=== PATIENT | male | born 1965 | race Caucasian/White ===

== ENCOUNTER 2016-08-01 22:57 | Inpatient (IN) | payer OTHER ==
[~2016-08-01] VITALS: Ht 172.7 cm; Wt 79.1 kg
[2016-08-01 22:59] VITALS: BP 129/87; PULSE 94; RESP 16; TEMP 98.8; O2SAT 97
[2016-08-02] VITALS (8 sets, daily range): BP systolic 126–190; BP diastolic 77–102; PULSE 99–113; RESP 18–20; TEMP 98.3–98.4; O2SAT 97–99
[2016-08-02] MEDS ORDERED: CANA100T PO (03:09)
[2016-08-02] MEDS ORDERED: CYCL1TAB29 PO (03:09)
[2016-08-02] MEDS ORDERED: GLYB5TAB3 PO (03:09)
[2016-08-02] MEDS ORDERED: LISI-519 PO (03:09)
[2016-08-02] MEDS ORDERED: GABA300C5 PO (03:09)
--- NOTE | 2016-08-02 03:25 | PD ---
HPI Chief Complaint: GI Complaint Time Seen by Provider: 03:24 Travel History International Travel<30 days: No Contact w/Intl Traveler<30days: No Traveled to known affect area: No History of Present Illness HPI 50-year-old male is a chronic alcoholic and for past few days has been unable to keep anything down since he's vomiting. Patient is still intoxicated. His and his children are here were very concerned about his health. His said that he drinks a lot and has been drinking for a while. He was admitted for pancreatitis 6 months ago in [place]. Patient points to his entire abdomen when asked for the location of the pain. No history of blood in his vomitus. says that his urine is dark in color. His vital signs were relatively stable. [facility] Past Medical History Narrative Medical List of his past medical, surgical, social and family history is reviewed from the nursing note. Diabetes: Yes Patient Takes Glucophage: No Hypertension: Yes Medical other: Yes (moe rotator cuff problems) Past Surgical History Joint Replacement: Yes (right hip) Social History Alcohol Use: Yes (daily beer) Tobacco Use: No Substance Use: Yes (marijuana) Allergies-Medications (Allergen,Severity, Reaction): Coded Allergies: Demerol (Verified Allergy, Severe, Nausea/Vomiting, 08/02/16) Comments List of his allergies reviewed from the nursing note. Reported Meds & Prescriptions Reported Meds & Active Scripts Active Reported Lisinopril 5 Mg Tab 5 Mg PO DAILY Flexeril (Cyclobenzaprine HCl) 10 Mg Tab 10 Mg PO TID Glyburide 5 Mg Tab 5 Mg PO DAILY Take with meals at the same time each day Invokana (Canagliflozin) 100 Mg Tab 100 Mg PO DAILY Take before 1st meal of day. Gabapentin 300 Mg Cap 300 Mg PO QD Narrative Medication List of his home medications reviewed from the nursing note. Review of Systems Except as stated in HPI: all other systems reviewed are Neg Physical Exam Narrative GENERAL: Intoxicated, moderate distress SKIN: Focused skin assessment warm/dry. Flushed HEAD: Atraumatic. Normocephalic. EYES: Pupils equal and round. No scleral icterus. No injection or drainage. ENT: No nasal bleeding or discharge. Dry mucous membrane NECK: Trachea midline. No JVD. CARDIOVASCULAR: Regular rate and rhythm. No murmur appreciated. RESPIRATORY: No accessory muscle use. Clear to auscultation. Breath sounds equal bilaterally. GASTROINTESTINAL: Abdomen soft, non-tender, nondistended. Hepatic and splenic margins not palpable. MUSCULOSKELETAL: No obvious deformities. No clubbing. No cyanosis. No edema. NEUROLOGICAL: Awake and alert. No obvious cranial nerve deficits. Motor grossly within normal limits. Normal speech. PSYCHIATRIC: Appropriate mood and affect; insight and judgment normal. Data Data Last Documented VS Vital Signs Date Time Temp Pulse Resp B/P Pulse Ox O2 Delivery O2 Flow Rate FiO2 08/01/16 22:59 98.8 94 16 129/87 97 Room Air Orders Complete Blood Count With Diff (08/02/16 03:32) Comprehensive Metabolic Panel (08/02/16 03:32) Lipase (08/02/16 03:32) Prothrombin Time / Inr (Pt) (08/02/16 03:32) Urinalysis - C+S If Indicated (08/02/16 03:32) Ct Abd/Pel W/O Iv Contrast (08/02/16 03:32) Iv Access Insert/Monitor (08/02/16 03:32) Ecg Monitoring (08/02/16 03:32) Oximetry (08/02/16 03:32) Ondansetron Inj (Zofran Inj) (08/02/16 03:45) Pantoprazole Inj (Protonix Inj) (08/02/16 03:45) Sodium Chlor 0.9% 1000 Ml Inj (Ns 1000 M (08/02/16 03:32) Sodium Chloride 0.9% Flush (Ns Flush) (08/02/16 03:45) Magnesium (Mg) (08/02/16 05:04) Potassium Chlor 20 Meq Premix (Kcl 20 Me (08/02/16 05:15) Potassium Chloride (Kcl) (08/02/16 05:15) Admit Order (Ed Use Only) (08/02/16 05:14) Labs Laboratory Tests Test 08/02/16 03:45 White Blood Count 9.2 TH/MM3 Red Blood Count 4.09 MIL/MM3 Hemoglobin 13.8 GM/DL Hematocrit 38.8 % Mean Corpuscular Volume 94.8 FL Mean Corpuscular Hemoglobin 33.7 PG Mean Corpuscular Hemoglobin 35.5 % Concent Red Cell Distribution Width 12.9 % Platelet Count 190 TH/MM3 Mean Platelet Volume 8.2 FL Neutrophils (%) (Auto) 57.1 % Lymphocytes (%) (Auto) 31.1 % Monocytes (%) (Auto) 8.9 % Eosinophils (%) (Auto) 1.9 % Basophils (%) (Auto) 1.0 % Neutrophils # (Auto) 5.3 TH/MM3 Lymphocytes # (Auto) 2.9 TH/MM3 Monocytes # (Auto) 0.8 TH/MM3 Eosinophils # (Auto) 0.2 TH/MM3 Basophils # (Auto) 0.1 TH/MM3 CBC Comment DIFF FINAL Differential Comment Prothrombin Time 14.2 SEC Prothromb Time International 1.3 RATIO Ratio Sodium Level 124 MEQ/L Potassium Level 3.0 MEQ/L Chloride Level 88 MEQ/L Carbon Dioxide Level 22.5 MEQ/L Anion Gap 14 MEQ/L Blood Urea Nitrogen 7 MG/DL Creatinine 0.77 MG/DL Estimat Glomerular Filtration 106 ML/MIN Rate Random Glucose 129 MG/DL Calcium Level 8.6 MG/DL Magnesium Level 1.8 MG/DL Total Bilirubin 1.4 MG/DL Aspartate Amino Transf 88 U/L (AST/SGOT) Alanine Aminotransferase 69 U/L (ALT/SGPT) Alkaline Phosphatase 83 U/L Total Protein 7.8 GM/DL Albumin 3.8 GM/DL Lipase 695 U/L MDM Medical Decision Making Medical Screen Exam Complete: Yes Emergency Medical Condition: Yes Medical Record Reviewed: Yes Differential Diagnosis Acute pancreatitis, alcoholic cirrhosis, alcoholic hepatitis Narrative Course 5:02 AM patient's sodium level is significantly low. Potassium is low as well. I have given him a liter of IV fluid bolus and he is getting a second one. I will order for potassium replacement as well. He was also given IV Zofran and IV Protonix. Patient will need to be admitted for his hyponatremia. Awaiting for the hospitalist to call back. CT scan is down. Awaiting for the results. 5:[address] scan does not show any small bowel obstruction. There is hepatomegaly with fatty liver infiltration. Critical Care Narrative Aggregate critical care time was 30 minutes. Time to perform other separately billable procedures was not included in the critical care time. My time did not include minutes spent treating any other patients simultaneously or on activities that did not directly contribute to the patient's treatment. The services I provided to this patient were to treat and/or prevent clinically significant deterioration that could result in: Severe hyponatremia, hyperkalemia, replacement therapy I provided critical care services requiring my management, as noted below: Chart data review, documentation time, medication orders and management, vital sign assessments/reviewing monitor data, ordering and reviewing lab tests, ordering and interpreting/reviewing x-rays and diagnostic studies, care of the patient and discussion of the patient with the admitting physicians. Procedures EKG Prior to Arrival: No Diagnosis Primary Impression: Hyponatremia Additional Impressions: Alcoholic gastritis Qualified Code: K29.20 - Acute alcoholic gastritis without hemorrhage Hypokalemia Hepatomegaly Admitting Information Admitting Physician Requests: Aisha Rosen MD Aug 02, 2016 03:25
[2016-08-02] MEDS ORDERED: SODIUM CHLOR 0.9% 1000 ML INJ 1,000 ML IV SCH (03:32)
[2016-08-02] MEDS ORDERED: SODIUM CHLORIDE 0.9% FLUSH 10 ML FLUSH IV FLUSH PRN ×3 (03:45→11:45)
[2016-08-02] MEDS ORDERED: PANTOPRAZOLE SODIUM 40 MG VIAL IVP ONE (03:45)
[2016-08-02] MEDS ORDERED: ONDANSETRON HCL 4 MG/2 ML VIAL IVP ONE (03:45)
[2016-08-02 03:59] LABS: AUTOMATED NEUTROPHIL # 5.3 TH/MM3 (1.8-7.7); BASOPHIL # 0.1 TH/MM3 (0-0.2); EOSINOPHIL # 0.2 TH/MM3 (0-0.4); EOSINOPHIL % 1.9 % (0.0-4.0); HEMATOCRIT 38.8 % (39.0-51.0); HEMO FLAGS DIFF FINAL; LYMPH % 31.1 % (9.0-44.0); LYMPHOCYTE # 2.9 TH/MM3 (1.0-4.8); MEAN CELL VOLUME 94.8 FL (80.0-100.0); MEAN CORPUSCULAR HEMOGLOBIN 33.7 PG (27.0-34.0); MEAN CORPUSCULAR HGB CONC 35.5 % (32.0-36.0); MONO % 8.9 % (0.0-8.0); NEUT % 57.1 % (16.0-70.0); PLATELET COUNT 190 TH/MM3 (150-450); RED BLOOD COUNT 4.09 MIL/MM3 (4.50-5.90); RED CELL DISTRIBUTION WIDTH 12.9 % (11.6-17.2); WHITE BLOOD COUNT 9.2 TH/MM3 (4.0-11.0)
[2016-08-02 04:17] LABS: INTERNATIONAL NORMALIZED RATIO 1.3 RATIO; PROTHROMBIN TIME - PATIENT 14.2 SEC (9.8-11.6)
[2016-08-02 04:21] LABS: ALKALINE PHOSPHATASE 83 U/L (45-117); ALT (GPT) 69 U/L (12-78); ANION GAP 14 MEQ/L (5-15); AST (GOT) 88 U/L (15-37); BICARBONATE 22.5 MEQ/L (21.0-32.0); BLOOD UREA NITROGEN 7 MG/DL (7-18); CHLORIDE 88 MEQ/L (98-107); GLOMERULAR FILTRATION RATE 106 ML/MIN (>89); TOTAL BILIRUBIN ADULT 1.4 MG/DL (0.2-1.0)
[2016-08-02 04:30] LABS: SODIUM (NA) 124 MEQ/L (136-145)
--- NOTE | 2016-08-02 05:03 | RADRPT ---
EXAM DATE/TIME: 08/02/2016 04:34 [place] COMPARISON: No previous studies available for comparison. INDICATIONS : Abdomen pain with nausea and vomiting. ORAL CONTRAST: No oral contrast ingested. RADIATION DOSE: 9.96 CTDIvol (mGy) MEDICAL HISTORY : Hypertension. Diabetes mellitus type 2. SURGICAL HISTORY : Hip ORIF ENCOUNTER: Initial ACUITY: 1 day PAIN SCALE: 5/10 LOCATION: abdomen TECHNIQUE: Volumetric scanning of the abdomen and pelvis was performed. Using automated exposure control and ad justment of the mA and/or kV according to patient size, radiation dose was kept as low as reasonably achievable to obtain optimal diagnostic quality images. FINDINGS: LOWER LUNGS: The visualized lower lungs are clear. LIVER: Slightly fatty and mildly enlarged. The liver is approximately 21.[address] appearance of the gallbladder within normal limits. SPLEEN: Normal size without lesion. PANCREAS: Within normal limits. KIDNEYS: Normal in size and shape. There is no mass, stone, or hydronephrosis. ADRENAL GLANDS: Within normal limits. VASCULAR: There is aortoiliac atherosclerosis. No aneurysm. BOWEL/MESENTERY: The stomach, small bowel, and colon demonstrate no acute abnormality. There is no free intraperitone al air or fluid. Normal appendix. ABDOMINAL WALL: Within normal limits. RETROPERITONEUM: There is no lymphadenopathy. BLADDER: No wall thickening or mass. REPRODUCTIVE: Within normal limits. INGUINAL: Small fat containing inguinal hernia on the left. MUSCULOSKELETAL: No acute bony abnormality demonstrated. CONCLUSION: 1. Mildly enlarged and fatty infiltrated liver. 2. No obstruction or acute inflammatory changes. 3. Aortoiliac atherosclerosis. No aneurysm. 4. Small left inguinal hernia containing fat only. Dewayne Hoffman MD on August 02, 2016 at 4:59 Board Certified Radiologist. This report was verified electronically.
[2016-08-02] MEDS ORDERED: POTASSIUM CHLOR 20 MEQ PREMIX 100 ML IV ONE (05:15)
[2016-08-02] MEDS ORDERED: POTASSIUM CHLORIDE 20 MEQ CONTROLLED RELEASE TAB PO ONE (05:15)
[2016-08-02] MEDS ORDERED: ONDANSETRON HCL 4 MG/2 ML VIAL IVP PRN ×2 (05:30→11:45)
[2016-08-02] MEDS ORDERED: NALOXONE HCL 0.4 MG/ML AMP IV PRN ×2 (05:30→11:45)
[2016-08-02] MEDS: SODIUM CHLOR 0.9% 1000 ML INJ 1,000 ML IV SCH ×4 (06:01→23:26)
[2016-08-02 07:54] LABS: BLOOD, URINE MOD (NEG); COMMENT (UR) CULTURE INDICATED; CULTURE IF INDICATED CULTURE INDICATED; GLUCOSE,URINE NEG (NEG); GRANULAR CAST, URINE 3 /lpf; HYALINE CAST, URINE 29 /lpf (RARE); KETONE, URINE NEG (NEG); MUCUS URINE FEW /lpf (OCC); NITRITE,URINE NEG (NEG); PH, URINE 5.5 (5.0-8.5); SQUAMOUS EPITHELIAL CELL URINE 17 /hpf (0-5); URINE COLOR YELLOW (YELLW/STRAW)
[2016-08-02] MEDS: SODIUM CHLORIDE 0.9% FLUSH 10 ML FLUSH IV FLUSH SCH ×2 (07:59→21:00)
[2016-08-02 09:37] LABS: MAGNESIUM 1.8 MG/DL (1.5-2.5); POTASSIUM 3.8 MEQ/L (3.5-5.1)
[2016-08-02 11:27] LABS: BICARBONATE 21.5 MEQ/L (21.0-32.0); MAGNESIUM 1.7 MG/DL (1.5-2.5); POTASSIUM 3.8 MEQ/L (3.5-5.1)
--- NOTE | 2016-08-02 11:29 | HHI.HP ---
[facility]Staff Admission Diagnosis hyponatremia, hypokalemia, chronic alcoholism Diagnoses: Chief Complaint: Nausea vomiting diarrhea and weight loss Travel History International Travel<30 Days: No Contact w/Intl Traveler <30 Da: No Traveled to Known Affected Are: No History of Present Illness 51 years old male with history of heavy alcohol abuse 18 beer a day, who had episode of acute actinic keratitis about 6 month ago, presented to ED complaining of ongoing severe nausea and vomiting with any attempt to eat or drink, patient reported weight loss because of this, also patient reported diarrhea this time with a light stool color, his showed me some pictures of the stool. No fever or chills, patient denied significant abdominal pain or dysphagia. No chest pain, no dysuria urgency or frequency, patient expressed intention to stop drinking he want to try [facility] after discharge. Patient and his denied any blood in the vomit or the stool Review of Systems All 10 systems reviewed and was positive for what is mentioned in history of present illness otherwise negative Past Family Social History Past Medical History Alcoholism History of acute pancreatitis Hypertension Hyperlipidemia Diabetes mellitus Allergies: Coded Allergies: Demerol (Verified Allergy, Severe, Nausea/Vomiting, 08/02/16) Family History Review with the patient,not aware of significant medical history runs in his family Social History Patient drinks more than 18 beers a day daily, denied tobacco or illicit drug abuse Physical Exam Vital Signs Vital Signs Date Time Temp Pulse Resp B/P Pulse Ox O2 Delivery O2 Flow Rate FiO2 08/02/16 05:59 97 08/02/16 05:55 103 18 126/77 97 08/01/16 22:59 98.8 94 16 129/87 97 Room Air Physical Exam GENERAL: This is a well-nourished, well-developed patient, in no apparent distress. SKIN: No rashes, positive telangiectasis on the lower extremity and some on the face HEAD: Atraumatic. Normocephalic. EYES: Pupils equal round and reactive. Extraocular motions intact. Mild icteric sclera ENT: Nose without bleeding, or drainage, Airway patent. NECK: Trachea midline. Supple CARDIOVASCULAR: Regular rate and rhythm without murmurs, gallops, or rubs. RESPIRATORY: Fair air entry bilaterally. No wheezes, rales, or rhonchi. GASTROINTESTINAL: Abdomen soft, non-tender, nondistended. Positive bowel sounds , mild hepatomegaly appreciated under the costal margin MUSCULOSKELETAL: Extremities without clubbing, cyanosis, or edema. Pedal pulses appreciated NEUROLOGICAL: Awake and alert. Moves all extremity. Normal speech.no focal neurological deficit Laboratory Laboratory Tests Test 08/02/16 08/02/16 08/02/16 03:45 07:24 08:37 White Blood Count 9.2 Red Blood Count 4.09 Hemoglobin 13.8 Hematocrit 38.8 Mean Corpuscular Volume 94.8 Mean Corpuscular Hemoglobin 33.7 Mean Corpuscular Hemoglobin 35.5 Concent Red Cell Distribution Width 12.9 Platelet Count 190 Mean Platelet Volume 8.2 Neutrophils (%) (Auto) 57.1 Lymphocytes (%) (Auto) 31.1 Monocytes (%) (Auto) 8.9 Eosinophils (%) (Auto) 1.9 Basophils (%) (Auto) 1.0 Neutrophils # (Auto) 5.3 Lymphocytes # (Auto) 2.9 Monocytes # (Auto) 0.8 Eosinophils # (Auto) 0.2 Basophils # (Auto) 0.1 CBC Comment DIFF FINAL Differential Comment Prothrombin Time 14.2 Prothromb Time International 1.3 Ratio Sodium Level 124 132 Potassium Level 3.0 3.8 Chloride Level 88 97 Carbon Dioxide Level 22.5 23.0 Anion Gap 14 12 Blood Urea Nitrogen 7 5 Creatinine 0.77 0.68 Estimat Glomerular Filtration 106 122 Rate Random Glucose 129 162 Calcium Level 8.6 8.4 Magnesium Level 1.8 1.8 Total Bilirubin 1.4 Aspartate Amino Transf 88 (AST/SGOT) Alanine Aminotransferase 69 (ALT/SGPT) Alkaline Phosphatase 83 Total Protein 7.8 Albumin 3.8 Lipase 695 Urine Color YELLOW Urine Turbidity CLOUDY Urine pH 5.5 Urine Specific Davis 1.014 Urine Protein 100 Urine Glucose (UA) NEG Urine Ketones NEG Urine Occult Blood MOD Urine Nitrite NEG Urine Bilirubin NEG Urine Urobilinogen LESS THAN 2.0 Urine Leukocyte Esterase SMALL Urine RBC 56 Urine WBC 13 Urine Squamous Epithelial 17 Cells Urine Amorphous Sediment RARE Urine Hyaline Casts 29 Urine Granular Casts 3 Urine Mucus FEW Urine Yeast with Hyphae MOD Urine Yeast (Budding) MANY Microscopic Urinalysis Comment CULTURE INDICATED Date/Time Procedure Status Source Growth 08/02/16 07:24 Urine Culture Received Urine Clean Catch Pending Result Diagram: 08/02/16 0345 08/02/16 0837 Imaging Last Impressions Abdomen/Pelvis CT 08/02/16 0332 Signed Impressions: Service Date/Time: Tuesday, August 02, 2016 04:34 - CONCLUSION: 1. Mildly enlarged and fatty infiltrated liver. 2. No obstruction or acute inflammatory changes. 3. Aortoiliac atherosclerosis. No aneurysm. 4. Small left inguinal hernia containing fat only. Dewayne Hoffman MD Assessment and Plan Assessment and Plan 50 years old male with history of severe alcohol abuse came with complaint of losing weight due to constant nausea and vomiting with oral intake Persistent nausea and vomiting along with diarrhea with any oral intake need to rule out gastritis versus PUD History with chronic NSAID use 600 mg ibuprofen daily for arthritis which will increase his risk of PUD Acute on chronic pancreatitis with elevated lipase 695 Heavily alcohol abuse Hyponatremia mostly due to beer potomania Hypokalemia mostly due to diarrhea Fatty liver on CT abdomen Increased INR 1.3 due to mostly hepatic liver History of recent pancreatitis due to alcoholism 6 month ago Hypertension Diabetes mellitus DVT prophylaxis with SCD will hold on chemical due to increased INR due to hepatic liver Plan: Admit for observation Iv Protonix Generous iv fluid 200 cc normal saline Nothing by mouth Consult GI for upper scope Monitor BMP and electrolytes Hold oral hyperglycemic, Accu-Chek with insulin sliding scale Vasotec prn and resume lisinopril Areli Barrera MD Aug 02, 2016 11:29
[2016-08-02] MEDS ORDERED: GLUCAGON 1 MG/ML VIAL OTHER PRN (11:30)
[2016-08-02] MEDS ORDERED: LORazepam 2 MG/ML VIAL IV PUSH PRN ×4 (11:30)
[2016-08-02] MEDS ORDERED: FLUMAZENIL 0.5 MG/5 ML VIAL IV PUSH PRN (11:30)
[2016-08-02] MEDS ORDERED: DEXTROSE 50% IN WATER 50 ML VIAL(D50) IV PUSH PRN (11:30)
[2016-08-02] MEDS: GABAPENTIN 300 MG CAP PO SCH (14:03)
[2016-08-02] MEDS: PANTOPRAZOLE SODIUM 40 MG VIAL IV PUSH SCH (14:13)
[2016-08-02] MEDS: LORazepam 1 MG TAB PO PRN ×2 (14:14→21:05)
[2016-08-02 15:58] LABS: BICARBONATE 25.4 MEQ/L (21.0-32.0); MAGNESIUM 1.6 MG/DL (1.5-2.5); POTASSIUM 3.9 MEQ/L (3.5-5.1)
[2016-08-02] MEDS: INSULIN NovoLIN REGULAR SUPPLEMENTAL SCALE SQ SCH ×2 (16:00→21:00)
[2016-08-02] MEDS ORDERED: SODIUM CHLORIDE 0.9% FLUSH 10 ML FLUSH IV FLUSH SCH (21:00)
[2016-08-03] VITALS (18 sets, daily range): BP systolic 125–200; BP diastolic 71–117; PULSE 76–114; RESP 18–22; TEMP 97.8–98.9; O2SAT 95–99
[2016-08-03] MEDS: SODIUM CHLOR 0.9% 1000 ML INJ 1,000 ML IV SCH (03:30)
[2016-08-03] MEDS: LORazepam 1 MG TAB PO PRN ×4 (05:55→17:48)
[2016-08-03] MEDS: INSULIN NovoLIN REGULAR SUPPLEMENTAL SCALE SQ SCH ×4 (06:01→21:19)
[2016-08-03 06:57] LABS: AUTOMATED NEUTROPHIL # 2.9 TH/MM3 (1.8-7.7); BASOPHIL # 0.1 TH/MM3 (0-0.2); BASOPHIL % 1.3 % (0.0-2.0); EOSINOPHIL # 0.1 TH/MM3 (0-0.4); EOSINOPHIL % 1.4 % (0.0-4.0); HEMATOCRIT 38.3 % (39.0-51.0); HEMO FLAGS DIFF FINAL; LYMPH % 17.7 % (9.0-44.0); LYMPHOCYTE # 0.8 TH/MM3 (1.0-4.8); MEAN CELL VOLUME 96.8 FL (80.0-100.0); MEAN CORPUSCULAR HEMOGLOBIN 33.2 PG (27.0-34.0); MEAN CORPUSCULAR HGB CONC 34.3 % (32.0-36.0); MONO % 13.3 % (0.0-8.0); NEUT % 66.3 % (16.0-70.0); PLATELET COUNT 104 TH/MM3 (150-450); RED BLOOD COUNT 3.95 MIL/MM3 (4.50-5.90); WHITE BLOOD COUNT 4.4 TH/MM3 (4.0-11.0)
[2016-08-03 07:07] LABS: ALKALINE PHOSPHATASE 81 U/L (45-117); ALT (GPT) 57 U/L (12-78); ANION GAP 8 MEQ/L (5-15); AST (GOT) 64 U/L (15-37); BICARBONATE 27.2 MEQ/L (21.0-32.0); BLOOD UREA NITROGEN 7 MG/DL (7-18); CHLORIDE 106 MEQ/L (98-107); GLOMERULAR FILTRATION RATE 129 ML/MIN (>89); POTASSIUM 3.4 MEQ/L (3.5-5.1); SODIUM (NA) 141 MEQ/L (136-145); TOTAL BILIRUBIN ADULT 1.4 MG/DL (0.2-1.0)
[2016-08-03] MEDS: GABAPENTIN 300 MG CAP PO SCH (08:34)
[2016-08-03] MEDS: SODIUM CHLORIDE 0.9% FLUSH 10 ML FLUSH IV FLUSH SCH ×2 (08:34→21:15)
[2016-08-03] MEDS ORDERED: LISINOPRIL 5 MG TAB PO SCH (09:00)
[2016-08-03] MEDS ORDERED: ENALAPRILAT 1.25 MG/ML VIAL IV PUSH ONE (09:15)
--- NOTE | 2016-08-03 09:16 | PD.CONS ---
HPI History of Present Illness This is a 51 year old male who presented to the ED with c/o nausea and vomiting , decreased appetite, and weight loss. He reports that this has been going on for about 3 months. He is not sure how much weight he has actually lost. Denies abdominal pain. Reports he also has loose stool that is "pale" in color. He does use alcohol, reports about 18 beers per day. Reports he wants to stop drinking. Denies any fevers at home. Denies hematemesis or hematochezia. Has never had EGD or colonoscopy. Does report history of chronic NSAID use, takes Ibuprofen daily for pain in joints. (Za Pollard) PFSH Past Medical History -Alcoholism -Acute pancreatitis -Hypertension -Hyperlipidemia -Diabetes mellitus Past Surgical History -Never had EGD or Colonoscopy (Za Pollard) Coded Allergies: Demerol (Verified Allergy, Severe, Nausea/Vomiting, 08/02/16) Medications Current Medications Medications (Trade) Dose Ordered Sig/Rajan Route PRN Reason Start Time Stop Time Status Last Admin Dose Admin Sodium Chloride (NS 1000 ml Inj) 1,000 ml @ 100 mls/hr Q10H IV 08/02/16 05:17 08/03/16 03:30 Sodium Chloride (NS Flush) 2 ml UNSCH PRN IV FLUSH FLUSH AFTER USING IV ACCESS 08/02/16 05:30 Sodium Chloride (NS Flush) 2 ml BID IV FLUSH 08/02/16 09:00 Naloxone HCl (Narcan Inj) 0.4 mg UNSCH PRN IV SEE LABEL COMMENTS 08/02/16 05:30 Pantoprazole Sodium (Protonix Inj) 40 mg Q24H IV PUSH 08/02/16 13:00 08/02/16 14:13 Gabapentin (Neurontin) 300 mg DAILY PO 08/02/16 13:00 08/03/16 08:34 Lisinopril (Prinivil) 5 mg DAILY PO 08/03/16 09:00 08/03/16 08:34 Flumazenil (Romazicon Inj) 0.2 mg Q1M PRN IV PUSH SEE LABEL COMMENTS 08/02/16 11:30 Lorazepam (Ativan) 1 mg Q4H PRN PO CIWA 8 - 10 08/02/16 11:30 08/03/16 05:55 Lorazepam (Ativan Inj) 1 mg Q4H PRN IV PUSH CIWA 8 - 10 08/02/16 11:30 Lorazepam (Ativan) 2 mg Q2H PRN PO CIWA 11-14 08/02/16 11:30 Lorazepam (Ativan Inj) 2 mg Q2H PRN IV PUSH CIWA 11-14 08/02/16 11:30 Lorazepam (Ativan Inj) 2 mg Q1H PRN IV PUSH CIWA 15-20 08/02/16 11:30 Lorazepam (Ativan Inj) 2 mg Q15M PRN IV PUSH CIWA > 20 08/02/16 11:30 Dextrose (D50w (Vial) Inj) 25 ml UNSCH PRN IV PUSH HYPOGLYCEMIA-SEE COMMENTS 08/02/16 11:30 Glucagon (Glucagon Inj) 1 mg UNSCH PRN OTHER HYPOGLYCEMIA-SEE COMMENTS 08/02/16 11:30 Ondansetron HCl (Zofran Inj) 4 mg Q6H PRN IVP NAUSEA OR VOMITING 08/02/16 11:45 Pneumococcal Polyvalent Vaccine (Pneumovax-23 Inj) 25 mcg ONCE ONCE IM 08/03/16 10:00 08/03/16 10:01 Influenza Virus Vaccine (Flu (Quadrivalent) Vaccine Inj) 0.5 ml ONCE ONCE IM 08/03/16 10:00 08/03/16 10:01 Family History -Unsure of family medical history Social History -ETOH: Averages 18 beers per day -Tobacco: Denies -Illicit Drugs: Denies (Za Pollard) Review of Systems Constitutional: COMPLAINS OF: Weight loss Endocrine: DENIES: Polydipsia, Polyuria Eyes: DENIES: Blurred vision, Photosensitivity, Double Vision Ears, nose, mouth, throat: DENIES: Hearing loss, Vertigo, Oral lesions, Throat pain, Hoarseness Respiratory: DENIES: Cough, Wheezing, Hemoptysis, Sputum production, Shortness of breath Cardiovascular: DENIES: Chest pain, Palpitations, Syncope, Lower Extremity Edema, Orthopnea, Claudication Gastrointestinal: COMPLAINS OF: Diarrhea, Nausea, Vomiting, DENIES: Abdominal pain, Black stools, Bloody stools, Difficulty Swallowing, Swelling of Abdomen, Heartburn, Hematemesis Genitourinary: DENIES: Urinary frequency, Urinary incontinence, Urgency, Hematuria, Dysuria, Nocturia Musculoskeletal: DENIES: Joint pain, Muscle aches, Stiffness, Joint Swelling, Back pain, Neck pain Integumentary: DENIES: Abnormal pigmentation, Nail changes, Pruritus, Rash, Jaundice Hematologic/lymphatic: DENIES: Bruising, Lymphadenopathy Immunologic/allergic: DENIES: Eczema, Urticaria Neurologic: DENIES: Abnormal gait, Headache, Localized weakness, Paresthesias Psychiatric: DENIES: Anxiety, Confusion, Mood changes, Depression, Agitation, Suicidal Ideation (Za Pollard) GI Exam Vitals I&O Vital Signs Date Time Temp Pulse Resp B/P Pulse Ox O2 Delivery O2 Flow Rate FiO2 08/03/16 08:20 97.8 100 18 200/105 96 08/03/16 06:13 99 20 200/117 96 08/03/16 04:00 98.6 99 20 189/91 99 08/03/16 00:00 98.9 114 22 156/82 99 08/02/16 20:00 103 08/02/16 19:35 98.3 106 18 183/102 99 08/02/16 15:23 98.4 113 18 153/85 97 08/02/16 14:20 99 20 190/92 98 Room Air 08/02/16 12:00 98 21 08/02/16 11:30 104 20 154/82 99 Room Air I/O 08/02/16 08/02/16 08/02/16 08/03/16 08/03/16 08/03/16 07:00 15:00 23:00 07:00 15:00 23:00 Intake Total 240 ml 120 ml 1740 ml Output Total 300 ml 1252 ml Balance -60 ml 120 ml 488 ml Intake Oral 240 ml 120 ml IV Total 1740 ml Output Urine Total 300 ml 1250 ml Stool Total 2 ml # Voids 1 3 Imaging Last Impressions Abdomen/Pelvis CT 08/02/16 0332 Signed Impressions: Service Date/Time: Tuesday, August 02, 2016 04:34 - CONCLUSION: 1. Mildly enlarged and fatty infiltrated liver. 2. No obstruction or acute inflammatory changes. 3. Aortoiliac atherosclerosis. No aneurysm. 4. Small left inguinal hernia containing fat only. Dewayne Hoffman MD Laboratory Test 08/02/16 08/02/16 08/02/16 4/29/17 10:25 15:03 17:50 05:15 Sodium Level 135 MEQ/L 138 MEQ/L 141 MEQ/L Potassium Level 3.8 MEQ/L 3.9 MEQ/L 3.4 MEQ/L Chloride Level 99 MEQ/L 103 MEQ/L 106 MEQ/L Carbon Dioxide Level 21.5 MEQ/L 25.4 MEQ/L 27.2 MEQ/L Anion Gap 15 MEQ/L 10 MEQ/L 8 MEQ/L Blood Urea Nitrogen 5 MG/DL 4 MG/DL 7 MG/DL Creatinine 0.70 MG/DL 0.63 MG/DL 0.65 MG/DL Estimat Glomerular Filtration 118 ML/MIN 133 ML/MIN 129 ML/MIN Rate Random Glucose 150 MG/DL 135 MG/DL 143 MG/DL Calcium Level 8.5 MG/DL 8.7 MG/DL 8.1 MG/DL Magnesium Level 1.7 MG/DL 1.6 MG/DL 1.7 MG/DL White Blood Count 4.4 TH/MM3 Red Blood Count 3.95 MIL/MM3 Hemoglobin 13.1 GM/DL Hematocrit 38.3 % Mean Corpuscular Volume 96.8 FL Mean Corpuscular Hemoglobin 33.2 PG Mean Corpuscular Hemoglobin 34.3 % Concent Red Cell Distribution Width 13.0 % Platelet Count 104 TH/MM3 Mean Platelet Volume 8.8 FL Neutrophils (%) (Auto) 66.3 % Lymphocytes (%) (Auto) 17.7 % Monocytes (%) (Auto) 13.3 % Eosinophils (%) (Auto) 1.4 % Basophils (%) (Auto) 1.3 % Neutrophils # (Auto) 2.9 TH/MM3 Lymphocytes # (Auto) 0.8 TH/MM3 Monocytes # (Auto) 0.6 TH/MM3 Eosinophils # (Auto) 0.1 TH/MM3 Basophils # (Auto) 0.1 TH/MM3 CBC Comment DIFF FINAL Differential Comment Total Bilirubin 1.4 MG/DL Aspartate Amino Transf 64 U/L (AST/SGOT) Alanine Aminotransferase 57 U/L (ALT/SGPT) Alkaline Phosphatase 81 U/L Total Protein 7.0 GM/DL Albumin 3.1 GM/DL Date/Time Procedure Status Source Growth 08/02/16 07:24 Urine Culture Received Urine Clean Catch Pending Physical Examination HEENT: PERRLA, mild icteric sclera NECK: Neck is supple, no JVD, no lymphadenopathy. CHEST: CTA CARDIAC: RRR ABDOMEN: Obese. Soft, non tender. Bowels sounds x 4 quadrants EXTREMITIES: No clubbing, cyanosis, or edema. SKIN: Telangiectasis noted on bilateral lower extremities ASSISTANT PROJECT MANAGER: No focal deficits; A & O x 3 (Za Pollard) Assessment and Plan Plan ASSESSMENT: -N/V/D: Gastritis versus PUD? Patient with history of chronic NSAID use and heavy alcohol abuse. Denies abdominal pain. Abdomen/Pelvis CT-- 1. Mildly enlarged and fatty infiltrated liver. 2. No obstruction or acute inflammatory changes. 3. Aortoiliac atherosclerosis. No aneurysm. 4. Small left inguinal hernia containing fat only. Patient never has had EGD/colonoscopy. AST 64, ALT 57 -Chronic pancreatitis: Secondary to alcoholism. Lipase 08/02-695. Patient states he plans to quit drinking alcohol. PLAN: -Schedule EGD/Colonoscopy -Obtain consents -Continue IV PPI -IV fluids -NPO -Monitor labs -Alcohol cessation discussed with patient -Further recommendations to follow based on results of above Patient seen and examined by Dr. Gerber and myself and this note is written on his behalf. (Za Pollard) Physician Comments Patient seen and examined Agree with above Continue with current supportive care Monitor labs Plan for an EGD and a colonoscopy on Friday (Hayes Gerber MD) Za Pollard Aug 03, 2016 09:16 Hayes Gerber MD Aug 03, 2016 12:42
[2016-08-03] MEDS ORDERED: LABETALOL HCL 100 MG/20 ML VIAL IV PUSH STA (09:19)
[2016-08-03] MEDS ORDERED: INFLUENZA VIRUS VACCINE (QUADRIVALENT) 0.5 ML SYR IM ONE (10:00)
[2016-08-03] MEDS ORDERED: PNEUMOCOCCAL POLYVALENT INJ 25 MCG/0.5 ML SYR IM ONE (10:00)
--- NOTE | 2016-08-03 11:18 | HHI.PR ---
Subjective Remarks I was called to see the patient having severe hypertension 200/117 Patient complain of some headache otherwise no chest anal dizziness fever or chills He was ordered 1 dose of labetalol, and added Vasotec as needed blood pressure drop nicely to 140/85, I increased his daily lisinopril and added Lopressor for his tachycardia. Patient told me he used to be on Lopressor statin and lisinopril however he stopped it on his own all of sudden Objective Vitals Vital Signs Date Time Temp Pulse Resp B/P Pulse Ox O2 Delivery O2 Flow Rate FiO2 08/03/16 10:40 86 176/93 08/03/16 10:09 85 176/97 08/03/16 09:55 99 176/104 08/03/16 08:20 97.8 100 18 200/105 96 08/03/16 06:13 99 20 200/117 96 08/03/16 04:00 98.6 99 20 189/91 99 08/03/16 00:00 98.9 114 22 156/82 99 08/02/16 20:00 103 08/02/16 19:35 98.3 106 18 183/102 99 08/02/16 15:23 98.4 113 18 153/85 97 08/02/16 14:20 99 20 190/92 98 Room Air 08/02/16 12:00 98 21 08/02/16 11:30 104 20 154/82 99 Room Air I/O 08/02/16 08/02/16 08/02/16 08/03/16 08/03/16 08/03/16 07:00 15:00 23:00 07:00 15:00 23:00 Intake Total 240 ml 120 ml 1740 ml Output Total 300 ml 1252 ml Balance -60 ml 120 ml 488 ml Intake Oral 240 ml 120 ml IV Total 1740 ml Output Urine Total 300 ml 1250 ml Stool Total 2 ml # Voids 1 3 Result Diagram: 08/03/16 0515 08/03/16 0515 Objective Remarks GENERAL: This is a well-nourished, well-developed patient, in no apparent distress. CARDIOVASCULAR: Regular rate and rhythm without murmurs, gallops, or rubs. RESPIRATORY: Clear to auscultation. Breath sounds equal bilaterally. No wheezes , rales, or rhonchi. GASTROINTESTINAL: Abdomen soft, non-tender, nondistended. Normal active bowel sounds MUSCULOSKELETAL: Extremities without clubbing, cyanosis, or edema. NEURO: Alert & Oriented x4 to person, place, time, situation. Moves all ext x4 A/P Assessment and Plan 50 years old male with history of severe alcohol abuse came with complaint of losing weight due to constant nausea and vomiting with oral intake Hypertensive urgency with blood pressure 200/117 on 08/03 with tachycardia>> improved Persistent nausea and vomiting along with diarrhea with any oral intake need to rule out gastritis versus PUD History with chronic NSAID use 600 mg ibuprofen daily for arthritis which will increase his risk of PUD Acute on chronic pancreatitis with elevated lipase 695 Heavily alcohol abuse Hyponatremia mostly due to beer potomania Hypokalemia mostly due to diarrhea Fatty liver on CT abdomen Increased INR 1.3 due to mostly hepatic liver History of recent pancreatitis due to alcoholism 6 month ago Hypertension Diabetes mellitus DVT prophylaxis with SCD will hold on chemical due to increased INR due to hepatic liver Plan: Change to inpatient admission Labetalol iv, Vasotec iv, increase lisinopril, check A1c , and FLP>> LDL 130, HDL 70, total cholesterol 2:15>> considering his fatty liver and out weight risk and benefit of statin holding on initiating statin is mostly favorable Appreciated GI consultation plan for EGD colonoscopy on Friday Advancing diet to clear liquids per GI Repeat lipase in a.m. Monitor BMP and electrolytes Iv Protonix Generous iv fluid 200 cc normal saline Hold oral hyperglycemic, Accu-Chek with insulin sliding scale Vasotec prn and resume lisinopril Areli Barrera MD Aug 03, 2016 11:18
[2016-08-03] MEDS: PANTOPRAZOLE SODIUM 40 MG VIAL IV PUSH SCH (12:16)
[2016-08-03] MEDS: LABETALOL HCL 100 MG/20 ML VIAL IV PRN ×2 (14:11→17:46)
[2016-08-03 14:29] LABS: LDL CHOLESTEROL 130 MG/DL (0-99)
[2016-08-03] MEDS ORDERED: PEG (High)/E-LYTE SOLN 4000 ML BTL PO ONE (16:00)
[2016-08-03] MEDS: METOPROLOL TARTRATE 25 MG TAB PO SCH (21:13)
[2016-08-03] MEDS: LISINOPRIL 10 MG TAB PO SCH (21:14)
[2016-08-03] MEDS: LORazepam 2 MG TAB PO PRN (21:29)
[2016-08-04] VITALS (26 sets, daily range): BP systolic 114–166; BP diastolic 71–96; PULSE 67–102; RESP 16–20; TEMP 97.6–98.7; O2SAT 96–99
[2016-08-04] MEDS: LORazepam 2 MG TAB PO PRN (03:17)
[2016-08-04] MEDS: INSULIN NovoLIN REGULAR SUPPLEMENTAL SCALE SQ SCH ×4 (06:34→20:24)
[2016-08-04 07:30] LABS: ALT (GPT) 52 U/L (12-78); ANION GAP 9 MEQ/L (5-15); AST (GOT) 55 U/L (15-37); BICARBONATE 27.1 MEQ/L (21.0-32.0); BLOOD UREA NITROGEN 4 MG/DL (7-18); CHLORIDE 102 MEQ/L (98-107); GLOMERULAR FILTRATION RATE 156 ML/MIN (>89); HEMATOCRIT 37.6 % (39.0-51.0); MEAN CELL VOLUME 96.3 FL (80.0-100.0); MEAN CORPUSCULAR HEMOGLOBIN 32.7 PG (27.0-34.0); PLATELET COUNT 111 TH/MM3 (150-450); POTASSIUM 3.1 MEQ/L (3.5-5.1); RED CELL DISTRIBUTION WIDTH 12.7 % (11.6-17.2); REVIEW FLAG FINAL; SODIUM (NA) 138 MEQ/L (136-145); WHITE BLOOD COUNT 4.7 TH/MM3 (4.0-11.0)
[2016-08-04 07:32] LABS: ALKALINE PHOSPHATASE 71 U/L (45-117); TOTAL BILIRUBIN ADULT 1.5 MG/DL (0.2-1.0)
[2016-08-04] MEDS: LORazepam 1 MG TAB PO PRN ×2 (08:38→12:48)
[2016-08-04] MEDS: GABAPENTIN 300 MG CAP PO SCH (08:38)
[2016-08-04] MEDS: SODIUM CHLORIDE 0.9% FLUSH 10 ML FLUSH IV FLUSH SCH ×2 (08:38→20:19)
[2016-08-04] MEDS: METOPROLOL TARTRATE 25 MG TAB PO SCH ×2 (08:39→20:18)
[2016-08-04] MEDS: LISINOPRIL 10 MG TAB PO SCH (08:39)
[2016-08-04] MEDS ORDERED: ENALAPRILAT 1.25 MG/ML VIAL IV PUSH PRN (09:45)
[2016-08-04] MEDS: POTASSIUM CHLORIDE 10 MEQ CONTROLLED RELEASE TAB PO SCH ×2 (09:58→12:48)
[2016-08-04] MEDS ORDERED: LISINOPRIL 10 MG TAB PO ONE (10:00)
[2016-08-04 11:13] LABS: HEMOGLOBIN A1b 1.6 %; HEMOGLOBIN LA1C 2.1 %; HEMOGLOBIN P3 3.6 %
--- NOTE | 2016-08-04 11:27 | HHI.GIFU ---
Subjective Remarks 51 yo male walking around his room in no apparent distress. Reports that he had an episode of emesis this morning, but denies nausea. States he had diarrhea yesterday. (Za Pollard) Objective Vitals I&O Vital Signs Date Time Temp Pulse Resp B/P Pulse Ox O2 Delivery O2 Flow Rate FiO2 08/04/16 11:00 97.6 80 17 146/91 98 08/04/16 08:57 98 21 08/04/16 08:00 99 Room Air 08/04/16 07:45 98.7 86 17 166/96 99 08/04/16 06:00 81 08/04/16 05:00 79 08/04/16 04:00 98.0 86 18 159/92 96 08/04/16 04:00 86 08/04/16 04:00 Room Air 08/04/16 03:46 96 21 08/04/16 03:00 84 08/04/16 02:00 81 08/04/16 01:00 79 08/04/16 00:00 98.5 81 18 149/86 96 08/04/16 00:00 81 08/04/16 00:00 Room Air 08/03/16 23:00 84 08/03/16 22:00 88 08/03/16 21:00 82 08/03/16 20:00 76 08/03/16 20:00 98.2 76 22 161/87 97 08/03/16 16:02 98.7 85 18 125/71 96 08/03/16 15:00 81 08/03/16 13:55 80 08/03/16 12:46 90 18 145/80 95 08/03/16 12:14 80 134/78 08/03/16 11:26 89 160/87 I/O 08/03/16 08/03/16 08/03/16 08/04/16 08/04/16 08/04/16 07:00 15:00 23:00 07:00 15:00 23:00 Intake Total 1740 ml 1250 ml 490 ml Output Total 1252 ml 350 ml 600 ml Balance 488 ml 900 ml -110 ml Intake Oral 650 ml 480 ml IV Total 1740 ml 600 ml 10 ml Output Urine Total 1250 ml 350 ml 600 ml Stool Total 2 ml 0 ml # Voids 3 # Bowel Movements 0 Laboratory Laboratory Tests Test 4/29/17 4/30/17 13:20 06:00 Triglycerides Level 77 Cholesterol Level 215 LDL Cholesterol 130 HDL Cholesterol 70.0 Cholesterol/HDL Ratio 3.07 White Blood Count 4.7 Red Blood Count 3.90 Hemoglobin 12.8 Hematocrit 37.6 Mean Corpuscular Volume 96.3 Mean Corpuscular Hemoglobin 32.7 Mean Corpuscular Hemoglobin 34.0 Concent Red Cell Distribution Width 12.7 Platelet Count 111 Mean Platelet Volume 8.9 Sodium Level 138 Potassium Level 3.1 Chloride Level 102 Carbon Dioxide Level 27.1 Anion Gap 9 Blood Urea Nitrogen 4 Creatinine 0.55 Estimat Glomerular Filtration 156 Rate Random Glucose 133 Calcium Level 8.1 Total Bilirubin 1.5 Aspartate Amino Transf 55 (AST/SGOT) Alanine Aminotransferase 52 (ALT/SGPT) Alkaline Phosphatase 71 Total Protein 7.0 Albumin 3.1 Lipase 270 Date/Time Procedure Status Source Growth 08/02/16 07:24 Urine Culture - Final Complete Urine Clean Catch NO GROWTH IN 48 HOURS. Imaging Last Impressions Abdomen/Pelvis CT 08/02/16 0332 Signed Impressions: Service Date/Time: Tuesday, August 02, 2016 04:34 - CONCLUSION: 1. Mildly enlarged and fatty infiltrated liver. 2. No obstruction or acute inflammatory changes. 3. Aortoiliac atherosclerosis. No aneurysm. 4. Small left inguinal hernia containing fat only. Dewayne Hoffman MD Physical Exam HEENT: PERRLA; normocephalic; atraumatic; no jaundice. Throat is clear. NECK: Neck is supple, no JVD, no lymphadenopathy. CHEST: CTA CARDIAC: RRR ABDOMEN: Obese, nontender; no hepatosplenomegaly; bowel sounds x 4 quadrants EXTREMITIES: No clubbing, cyanosis, or edema. SKIN: Normal; no rash; no jaundice. PIERCING ARTIST: No focal deficits; A & O x3 (Za Pollard) Assessment and Plan Plan ASSESSMENT: -N/V/D: Gastritis versus PUD? Patient with history of chronic NSAID use and heavy alcohol abuse. Denies abdominal pain. Abdomen/Pelvis CT-- 1. Mildly enlarged and fatty infiltrated liver. 2. No obstruction or acute inflammatory changes. 3. Aortoiliac atherosclerosis. No aneurysm. 4. Small left inguinal hernia containing fat only. Patient never has had EGD/colonoscopy. AST 55, ALT 52 -Chronic pancreatitis: Secondary to alcoholism. Lipase 08/02-695, 08/04-270. Patient states he plans to quit drinking alcohol. PLAN: -EGD/Colonoscopy Friday -Bowel prep today -Continue PPI -IV fluids -Monitor labs -Alcohol cessation discussed with patient -Further recommendations to follow based on results of above Patient seen and examined by Dr. Gerber and myself and this note is written on his behalf. (Za Pollard) Physician Comments Patient seen and examined Agree with above Continue with current supportive care Monitor labs EGD colonoscopy tomorrow (Hayes Gerber MD) Za Polalrd Aug 04, 2016 11:27 Hayes Gerber MD Aug 04, 2016 23:18
[2016-08-04] MEDS ORDERED: PEG (High)/E-LYTE SOLN 4000 ML BTL PO ONE (12:00)
[2016-08-04] MEDS: PANTOPRAZOLE SODIUM 40 MG VIAL IV PUSH SCH (12:04)
--- NOTE | 2016-08-04 14:18 | HHI.PR ---
Subjective Remarks Patient stated he did vomit this morning when he was trying to drink the prep for the colonoscopy he denied blood in the vomit Currently no chest and/or abdominal pain, he is going for EGD colonoscopy tomorrow Patient requested to try to wean himself off the alcohol/beer and if he fails he will follow with Reji Buchanan Objective Vitals Vital Signs Date Time Temp Pulse Resp B/P Pulse Ox O2 Delivery O2 Flow Rate FiO2 08/04/16 11:00 79 08/04/16 11:00 97.6 80 17 146/91 98 08/04/16 10:00 86 08/04/16 09:00 92 08/04/16 08:57 98 21 08/04/16 08:00 88 08/04/16 08:00 99 Room Air 08/04/16 07:45 98.7 86 17 166/96 99 08/04/16 07:00 75 08/04/16 06:00 81 08/04/16 05:00 79 08/04/16 04:00 98.0 86 18 159/92 96 08/04/16 04:00 86 08/04/16 04:00 Room Air 08/04/16 03:46 96 21 08/04/16 03:00 84 08/04/16 02:00 81 08/04/16 01:00 79 08/04/16 00:00 98.5 81 18 149/86 96 08/04/16 00:00 81 08/04/16 00:00 Room Air 08/03/16 23:00 84 08/03/16 22:00 88 08/03/16 21:00 82 08/03/16 20:00 76 08/03/16 20:00 98.2 76 22 161/87 97 08/03/16 16:02 98.7 85 18 125/71 96 08/03/16 15:00 81 I/O 08/03/16 08/03/16 08/03/16 08/04/16 08/04/16 08/04/16 07:00 15:00 23:00 07:00 15:00 23:00 Intake Total 1740 ml 1250 ml 490 ml Output Total 1252 ml 350 ml 600 ml Balance 488 ml 900 ml -110 ml Intake Oral 650 ml 480 ml IV Total 1740 ml 600 ml 10 ml Output Urine Total 1250 ml 350 ml 600 ml Stool Total 2 ml 0 ml # Voids 3 # Bowel Movements 0 Result Diagram: 08/04/1659908/04/16599 Objective Remarks GENERAL: This is a well-nourished, well-developed patient, in no apparent distress. CARDIOVASCULAR: Regular rate and rhythm without murmurs, gallops, or rubs. RESPIRATORY: Clear to auscultation. Breath sounds equal bilaterally. No wheezes , rales, or rhonchi. GASTROINTESTINAL: Abdomen soft, non-tender, nondistended. Normal active bowel sounds MUSCULOSKELETAL: Extremities without clubbing, cyanosis, or edema. NEURO: Alert & Oriented x4 to person, place, time, situation. Moves all ext x4 A/P Assessment and Plan 50 years old male with history of severe alcohol abuse came with complaint of losing weight due to constant nausea and vomiting with oral intake Hypertensive urgency with blood pressure 200/117 on 08/03 with tachycardia>> improved Persistent nausea and vomiting along with diarrhea with any oral intake need to rule out gastritis versus PUD History with chronic NSAID use 600 mg ibuprofen daily for arthritis which will increase his risk of PUD Acute on chronic pancreatitis with elevated lipase 695 Heavily alcohol abuse Hyponatremia mostly due to beer potomania Hypokalemia mostly due to diarrhea Fatty liver on CT abdomen Increased INR 1.3 due to mostly hepatic liver History of recent pancreatitis due to alcoholism 6 month ago Hypertension Diabetes mellitus uncontrolled with A1c 7.3 DVT prophylaxis with SCD will hold on chemical due to increased INR due to hepatic liver Plan: Labetalol iv, Vasotec iv, again increase lisinopril to maximum 40 mg daily, and FLP>> LDL 130, HDL 70, total cholesterol 2:15>> considering his fatty liver and out weight risk and benefit of statin holding on initiating statin is mostly favorable A1c 7.3, obviously patient has uncontrolled diabetes CBC BMP in a.m. Appreciated GI consultation plan for EGD colonoscopy on Friday Advancing diet to clear liquids per GI Repeat lipase in a.m. Monitor BMP and electrolytes Iv Protonix Generous iv fluid 200 cc normal saline Hold oral hyperglycemic, Accu-Chek with insulin sliding scale Vasotec prn and resume lisinopril Areli Barrera MD Aug 04, 2016 14:18
[2016-08-04] MEDS: LISINOPRIL 20 MG TAB PO SCH (20:19)
[2016-08-05] VITALS (13 sets, daily range): BP systolic 159–175; BP diastolic 93–104; PULSE 69–87; RESP 18; TEMP 98.1–98.4; O2SAT 96–99
[2016-08-05] MEDS: INSULIN NovoLIN REGULAR SUPPLEMENTAL SCALE SQ SCH ×2 (06:25→11:00)
[2016-08-05 06:55] LABS: AUTOMATED NEUTROPHIL # 3.2 TH/MM3 (1.8-7.7); BASOPHIL % 0.9 % (0.0-2.0); EOSINOPHIL # 0.2 TH/MM3 (0-0.4); EOSINOPHIL % 3.5 % (0.0-4.0); HEMATOCRIT 40.4 % (39.0-51.0); HEMO FLAGS DIFF FINAL; LYMPHOCYTE # 1.5 TH/MM3 (1.0-4.8); MEAN CELL VOLUME 97.3 FL (80.0-100.0); MEAN CORPUSCULAR HEMOGLOBIN 34.2 PG (27.0-34.0); MEAN CORPUSCULAR HGB CONC 35.1 % (32.0-36.0); MONO % 11.2 % (0.0-8.0); NEUT % 57.4 % (16.0-70.0); PLATELET COUNT 131 TH/MM3 (150-450); RED BLOOD COUNT 4.16 MIL/MM3 (4.50-5.90); RED CELL DISTRIBUTION WIDTH 12.6 % (11.6-17.2); WHITE BLOOD COUNT 5.5 TH/MM3 (4.0-11.0)
[2016-08-05 07:04] LABS: BICARBONATE 29.8 MEQ/L (21.0-32.0)
[2016-08-05] MEDS: LISINOPRIL 20 MG TAB PO SCH (08:18)
[2016-08-05] MEDS: SODIUM CHLORIDE 0.9% FLUSH 10 ML FLUSH IV FLUSH SCH (08:19)
[2016-08-05] MEDS: GABAPENTIN 300 MG CAP PO SCH (08:19)
[2016-08-05] MEDS: METOPROLOL TARTRATE 25 MG TAB PO SCH (08:19)
[2016-08-05] MEDS ORDERED: PROPOFOL 200 MG/20 ML AMP IV ONE (10:39)
--- NOTE | 2016-08-05 11:00 | GIPROC ---
[facility] [address] [facility]. [facility], [address] EGD PROCEDURE REPORT EXAM DATE: 08/05/2016 PATIENT NAME: Kaushik Penny MR #: [id number] BIRTHDATE: 1965 ATTENDING: Magan Mojica MD ORDER #: [id number] FOOT AND ANKLE SURGEON: Ambar Olivas and Vel Louise STATUS: inpatient INDICATIONS: The patient is a 51 yr old male here for an EGD due to epigastric abdominal pain PROCEDURE PERFORMED: EGD w/ biopsy MEDICATIONS: None and Per Anesthesia. TOPICAL ANESTHETIC: CONSENT: The patient understands the risks and benefits of the procedure and understands that these risks include, but are not limited to: sedation, allergic reaction, infection, perforation and/or bleeding. Alternative means of evaluation and treatment include, among others: physical exam, x-rays, and/or surgical intervention. The patient elects to proceed with this endoscopic procedure. medical equipment was checked for proper function. Hand hygiene and appropriate measures for infection prevention was taken. After the risks, benefits and alternatives of the procedure were thoroughly explained, Informed consent was verified, confirmed and timeout was successfully executed by the treatment team. The patient was anesthetized with topical anesthesia and the EC-[id number] (Pedi C) and [id number] endoscope was introduced through the mouth and advanced to the second portion of the duodenum. Retroflexed views revealed no abnormalities The gastroscope was then slowly withdrawn and removed. ESOPHAGUS: There was LA Class B esophagitis noted. A biopsy was performed using cold forceps. Sample sent for histology. STOMACH: There was erythematous moderate gastritis in the gastric antrum. A biopsy was performed using cold forceps. Sample sent for histology. DUODENUM: The duodenal mucosa appeared normal in the 2nd part of the duodenum. ADVERSE EVENTS: There were no complications. IMPRESSIONS: 1. There was LA Class B esophagitis noted; biopsy was performed 2. There was erythematous gastritis in the gastric antrum; biopsy was performed 3. Normal duodenal mucosa in the 2nd part of the duodenum 4. Retroflexed views revealed no abnormalities RECOMMENDATIONS: 1. Await biopsy results. Biopsy results will not be ready for 7-10 days. If you don't hear from us in two weeks, call our office for biopsy results. 2. Anti-reflux regimen 3. Continue PPI 4. Avoid NSAIDS PATIENT CONDITION: stable DISPOSITION: Inpatient REPEAT EXAM: Return 1 year EGD pending biopsy results Magan Mojica MD eSigned: Magan Mojica MD 08/05/2016 11:00 AM cc: PATIENT NAME: Kaushik Penny MR#: [id number]
--- NOTE | 2016-08-05 11:02 | GIPROC ---
[facility] [address] [facility]. [facility], [address] COLONOSCOPY PROCEDURE REPORT EXAM DATE: 08/05/2016 PATIENT NAME: Kaushik Penny MR #: [id number] BIRTHDATE: 1965 ENDOSCOPIST: Magan Mojica MD ORDER #: [id number] GEOTECHNICIAL PROPERTIES TECHNICIAN: Ambar Olivas and Vel Louise STATUS: inpatient INDICATIONS: The patient is a 51 yr old male here for a colonoscopy due to abdominal pain and change in bowel habits PROCEDURE PERFORMED: Colonoscopy with biopsy MEDICATIONS: None and Per Anesthesia. PREP QUALITY: The Lyons Bowel Prep Score was Right colon 2, Mid colon 1, and Left colon 2. Total = 5. PREP TYPE:GoLytely ESTIMATED BLOOD LOSS: None CONSENT: The patient understands the risks and benefits of the procedure and understands that these risks include, but are not limited to: sedation, allergic reaction, infection, perforation and/or bleeding. Alternative means of evaluation and treatment include, among others: physical exam, x-rays, and/or surgical intervention. The patient elects to proceed with this endoscopic procedure. medical equipment was checked for proper function. Hand hygiene and appropriate measures for infection prevention was taken. After the risks, benefits and alternatives of the procedure were thoroughly explained, Informed consent was verified, confirmed and timeout was successfully executed by the treatment team. A digital exam revealed external hemorrhoids The Pentax EC-[id number] and [id number] endoscope was introduced through the anus and advanced to the cecum, which was identified by both the appendix and ileocecal valve. The instrument was then slowly withdrawn as the colon was fully examined. COLON FINDINGS: The colonic mucosa appeared normal throughout the entire examined colon. Multiple random biopsies of the area were performed using cold forceps. Retroflexed views revealed internal hemorrhoids and Retroflexed views revealed medium internal hemorrhoids The scope was then completely withdrawn from the patient and the procedure terminated. PROCEDURE WITHDRAWAL TIME:6minutes ADVERSE EVENTS: There were no complications. IMPRESSIONS: 1. The colonic mucosa appeared normal throughout the entire examined colon; multiple random biopsies of the area were performed using cold forceps 2. Retroflexed views revealed internal hemorrhoids 3. Retroflexed views revealed medium internal hemorrhoids 4. Revealed external hemorrhoids RECOMMENDATIONS: 1. Await biopsy results. Biopsy results will not be ready for 7-10 days. If you don't hear from us in two weeks, call our office for results. 2. Continue surveillance 3. Yearly hemoccult RECALL: Return 3 years Colonoscopy, pending biopsy results Mgaan Mojica MD eSigned: Magan Mojica MD 08/05/2016 11:02 AM cc: PATIENT NAME: Hemalatha Kaushik E MR#: [id number]
[2016-08-05] MEDS: PANTOPRAZOLE SODIUM 40 MG VIAL IV PUSH SCH (12:44)
[2016-08-05] MEDS ORDERED: MIDAZOLAM HCL 2 MG/2 ML VIAL ONE (13:09)
[2016-08-05] MEDS ORDERED: LISI-515 PO (14:40)
[2016-08-05] MEDS ORDERED: METO25TA3 PO (14:40)
[2016-08-05] MEDS ORDERED: PROT40TA PO (14:40)
--- NOTE | 2016-08-05 14:46 | HHI.DS ---
Discharge Summary Admission Date Aug 03, 2016 at 09:18 Discharge Date: August 05, 2016 Admitting Diagnosis hyponatremia, hypokalemia, chronic alcoholism (1) Alcoholic gastritis ICD Code: K29.20 (2) Hypokalemia ICD Code: E87.6 (3) Hyponatremia ICD Code: E87.1 (4) Hypertension ICD Code: I10 Procedures EGD colonoscopy Brief History - From Admission 51 years old male with history of heavy alcohol abuse 18 beer a day, who had episode of acute actinic keratitis about 6 month ago, presented to ED complaining of ongoing severe nausea and vomiting with any attempt to eat or drink, patient reported weight loss because of this, also patient reported diarrhea this time with a light stool color, his showed me some pictures of the stool. No fever or chills, patient denied significant abdominal pain or dysphagia. No chest pain, no dysuria urgency or frequency, patient expressed intention to stop drinking he want to try [facility] after discharge. Patient and his denied any blood in the vomit or the stool CBC/BMP: 08/05/16 0459 08/05/16 0459 Significant Findings Laboratory Tests Test 08/02/16 08/03/16 08/03/16 08/04/16 15:03 05:15 13:20 06:00 Blood Urea Nitrogen 4 MG/DL (7-18) 4 MG/DL (7-18) Random Glucose 135 MG/DL 143 MG/DL 133 MG/DL (74-106) (74-106) (74-106) Red Blood Count 3.95 MIL/MM3 3.90 MIL/MM3 (4.50-5.90) (4.50-5.90) Hematocrit 38.3 % 37.6 % (39.0-51.0) (39.0-51.0) Platelet Count 104 TH/MM3 111 TH/MM3 (150-450) (150-450) Monocytes (%) (Auto) 13.3 % (0.0-8.0) Lymphocytes # (Auto) 0.8 TH/MM3 (1.0-4.8) Potassium Level 3.4 MEQ/L 3.1 MEQ/L (3.5-5.1) (3.5-5.1) Calcium Level 8.1 MG/DL 8.1 MG/DL (8.5-10.1) (8.5-10.1) Total Bilirubin 1.4 MG/DL 1.5 MG/DL (0.2-1.0) (0.2-1.0) Aspartate Amino Transf 64 U/L (15-37) 55 U/L (15-37) (AST/SGOT) Albumin 3.1 GM/DL 3.1 GM/DL (3.4-5.0) (3.4-5.0) Hemoglobin A1c 7.3 % (4.3-6.0) Cholesterol Level 215 MG/DL (120-200) LDL Cholesterol 130 MG/DL (0-99) HDL Cholesterol 70.0 MG/DL (40.0-60.0) Hemoglobin 12.8 GM/DL (13.0-17.0) Creatinine 0.55 MG/DL (0.60-1.30) Test 08/05/16 04:59 Red Blood Count 4.16 MIL/MM3 (4.50-5.90) Mean Corpuscular Hemoglobin 34.2 PG (27.0-34.0) Platelet Count 131 TH/MM3 (150-450) Monocytes (%) (Auto) 11.2 % (0.0-8.0) Blood Urea Nitrogen 4 MG/DL (7-18) Random Glucose 107 MG/DL (74-106) PE at Discharge GENERAL: This is a well-nourished, well-developed patient, in no apparent distress. CARDIOVASCULAR: Regular rate and rhythm without murmurs, gallops, or rubs. RESPIRATORY: Clear to auscultation. Breath sounds equal bilaterally. No wheezes , rales, or rhonchi. GASTROINTESTINAL: Abdomen soft, non-tender, nondistended. Normal active bowel sounds MUSCULOSKELETAL: Extremities without clubbing, cyanosis, or edema. NEURO: Alert & Oriented x4 to person, place, time, situation. Moves all ext x4 Hospital Course 50 years old male admitted with persistent nausea vomiting, hypertensive urgency , acute and chronic pancreatitis, hyponatremia hypokalemia fatty liver diabetes mellitus, patient started on iv Protonix, iv fluid, antihypertensive medication , GI consulted patient had EGD and colonoscopy showed gastritis mostly due to alcoholism, colonoscopy unremarkable. Biopsies was obtained, patient to follow up with GI as an outpatient [id number] encounter performed with the patient on discharge day, as well as physical exam, summary of hospitalization course and postdischarge plan has been D/W the patient and his educated about alcohol he wants to try to detox at home he requested Librium prescription he seems to have serious will, D/W nurse Discharge medications reviewed and printed and signed, post discharge follow up visit with PCP and other specialist as well as Brief hospital course and discharge summary has been placed. Pt Condition on Discharge: Fair Discharge Disposition: Discharge Home Discharge Time: > 30 minutes Discharge Instructions DIET: Follow Instructions for: Heart Healthy Diet Activities you can perform: Weight Bearing as Terence Follow up Referrals: Gastroenterology - 2 Weeks with Magan Mojica MD New Medications: Pantoprazole (Protonix) 40 Mg Tab 40 MG PO DAILY Reflux #30 Ref 0 TAB Lisinopril (Lisinopril) 20 Mg Tab 20 MG PO Q12HR htn #60 TAB Metoprolol Tartrate (Metoprolol Tartrate) 25 Mg Tab 25 MG PO Q12HR htn #60 TAB Continued Medications: Canagliflozin (Invokana) 100 Mg Tab 100 MG PO DAILY Take before 1st meal of day. Blood Sugar Management #30 Ref 0 TAB Cyclobenzaprine (Flexeril) 10 Mg Tab 10 MG PO TID Muscle Spasm #90 Ref 0 TAB Gabapentin (Gabapentin) 300 Mg Cap 300 MG PO qd #60 Ref 0 CAP Glyburide (Glyburide) 5 Mg Tab 5 MG PO DAILY Take with meals at the same time each day Blood Sugar Management # 30 Ref 0 TAB Areli Barrera MD August 05, 2016 14:45
--- NOTE | 2016-08-05 14:47 | HHI.PR ---
Subjective Remarks Patient doing well post seizure no nausea or vomiting or abdominal Objective Vitals Vital Signs Date Time Temp Pulse Resp B/P Pulse Ox O2 Delivery O2 Flow Rate FiO2 08/05/16 12:00 75 08/05/16 12:00 98.4 75 18 159/102 98 08/05/16 11:15 81 16 133/89 99 08/05/16 11:05 85 18 123/68 99 08/05/16 11:00 77 08/05/16 10:57 98.6 82 18 98/68 96 08/05/16 08:00 86 08/05/16 07:46 99 21 08/05/16 07:30 98.2 87 18 175/104 98 08/05/16 07:00 70 08/05/16 06:00 69 08/05/16 05:00 71 08/05/16 04:00 73 08/05/16 03:57 Room Air 08/05/16 03:00 74 08/05/16 02:00 70 08/05/16 01:00 76 08/05/16 00:00 98.1 78 18 161/93 96 08/05/16 00:00 78 08/05/16 00:00 Room Air 08/04/16 23:00 74 08/04/16 22:00 72 08/04/16 21:00 70 08/04/16 20:00 Room Air 08/04/16 20:00 98.4 67 20 114/71 96 08/04/16 20:00 67 08/04/16 18:00 102 08/04/16 17:00 94 08/04/16 16:00 90 08/04/16 15:00 98.2 90 16 160/94 98 08/04/16 15:00 93 I/O 08/04/16 08/04/16 08/04/16 08/05/16 08/05/16 08/05/16 07:00 15:00 23:00 07:00 15:00 23:00 Intake Total 490 ml 1000 ml 1010 ml 500 ml Output Total 600 ml 225 ml 900 ml Balance -110 ml 775 ml 110 ml 500 ml Intake Oral 480 ml 1000 ml 1000 ml IV Total 10 ml 10 ml Other 500 ml Output Urine Total 600 ml 225 ml 900 ml # Voids 4 2 # Bowel Movements 0 3 5 Result Diagram: 08/05/16 0459 08/05/16 0459 Objective Remarks GENERAL: This is a well-nourished, well-developed patient, in no apparent distress. CARDIOVASCULAR: Regular rate and rhythm without murmurs, gallops, or rubs. RESPIRATORY: Clear to auscultation. Breath sounds equal bilaterally. No wheezes , rales, or rhonchi. GASTROINTESTINAL: Abdomen soft, non-tender, nondistended. Normal active bowel sounds MUSCULOSKELETAL: Extremities without clubbing, cyanosis, or edema. NEURO: Alert & Oriented x4 to person, place, time, situation. Moves all ext x4 Procedures EGD colonoscopy A/P Problem List: (1) Alcoholic gastritis ICD Code: K29.20 Status: Acute (2) Hypokalemia ICD Code: E87.6 Status: Acute (3) Hyponatremia ICD Code: E87.1 Status: Acute (4) Hypertension ICD Code: I10 Status: Acute Assessment and Plan 50 years old male with history of severe alcohol abuse came with complaint of losing weight due to constant nausea and vomiting with oral intake Hypertensive urgency with blood pressure 200/117 on 08/03 with tachycardia>> improved Persistent nausea and vomiting along with diarrhea with any oral intake need to rule out gastritis versus PUD History with chronic NSAID use 600 mg ibuprofen daily for arthritis which will increase his risk of PUD Acute on chronic pancreatitis with elevated lipase 695 Heavily alcohol abuse Hyponatremia mostly due to beer potomania Hypokalemia mostly due to diarrhea Fatty liver on CT abdomen Increased INR 1.3 due to mostly hepatic liver History of recent pancreatitis due to alcoholism 6 month ago Hypertension Diabetes mellitus uncontrolled with A1c 7.3 DVT prophylaxis with SCD will hold on chemical due to increased INR due to hepatic liver Plan: EGD and colonoscopy was positive for gastritis, patient follow up with GI as an outpatient Labetalol iv, Vasotec iv, again increase lisinopril to maximum 40 mg daily, and FLP>> LDL 130, HDL 70, total cholesterol 2:15>> considering his fatty liver and out weight risk and benefit of statin holding on initiating statin is mostly favorable A1c 7.3, obviously patient has uncontrolled diabetes CBC BMP in a.m. Appreciated GI consultation plan for EGD colonoscopy on Friday Advancing diet to clear liquids per GI Repeat lipase in a.m. Monitor BMP and electrolytes Iv Protonix Generous iv fluid 200 cc normal saline Hold oral hyperglycemic, Accu-Chek with insulin sliding scale Vasotec prn and resume lisinopril Discharge Planning Home today Problem Qualifiers (1) Alcoholic gastritis: Qualified Code: K29.20 - Acute alcoholic gastritis without hemorrhage Areli Barrera MD August 05, 2016 14:47
[2016-08-05] MEDS ORDERED: CHLORDIAZEPOXIDE PO (14:49)
== END 2016-08-05 15:47 | disposition home or self-care (01) | DRG 391 ==
LOC: NEPC 22:57 → NEDA 08-02 05:15 → NEDH 08-02 12:06 → NEPFCDU 08-02 14:52 → OBSVTOIN 08-03 09:18 → HCVR 08-03 13:40 → HCIS 08-03 19:56
PROVIDERS: ADMIT Hospitalist; ATTEND Hospitalist
PROC: 0DB68ZX Excision of Stomach, Via Natural or Artificial Opening Endoscopic, Diagnostic (ICD-10-PCS; 2016-08-05)
PROC: 0DBE8ZX Excision of Large Intestine, Via Natural or Artificial Opening Endoscopic, Diagnostic (ICD-10-PCS; principal; 2016-08-05 09:10)
PROC: 0DB58ZX Excision of Esophagus, Via Natural or Artificial Opening Endoscopic, Diagnostic (ICD-10-PCS; 2016-08-05 09:10)
DX: K29.20 Alcoholic gastritis without bleeding (principal); K85.20 Alcohol induced acute pancreatitis without necrosis or infection; K76.0 Fatty (change of) liver, not elsewhere classified; E87.1 Hypo-osmolality and hyponatremia; K86.0 Alcohol-induced chronic pancreatitis; E11.65 Type 2 diabetes mellitus with hyperglycemia; R16.0 Hepatomegaly, not elsewhere classified; E87.6 Hypokalemia; I10 Essential (primary) hypertension; F10.20 Alcohol dependence, uncomplicated; E78.5 Hyperlipidemia, unspecified; R19.7 Diarrhea, unspecified; Z88.5 Allergy status to narcotic agent; Z23 Encounter for immunization; I70.0 Atherosclerosis of aorta; I70.8 Atherosclerosis of other arteries; K40.90 Unilateral inguinal hernia, without obstruction or gangrene, not specified as recurrent; I16.0 Hypertensive urgency; Z79.1 Long term (current) use of non-steroidal anti-inflammatories (NSAID); K64.8 Other hemorrhoids
CPT/HCPCS: 74176; 80048; 80053; 80061; 81001; 82948; 83036; 83690; 83735; 85025; 85027; 85610; 87086; 88305; 90732; 96361; 96374; 96375; C9113; G0378; J2250; J2405; J3480; J7030